=== PATIENT | male | born 1960 ===

== ENCOUNTER 2024-10-29 14:01 | Day surgery (SDC) | payer OTHER ==
[2024-10-29] VITALS (26 sets, daily range): BP systolic 114–154; BP diastolic 68–96
[~2024-10-29] VITALS: Ht 171 cm; Wt 85.4 kg
[~2024-10-29 14:01] MED LIST: ALLERCLEAR PO; Aspir 8181 MG PO; GLIP5 PO; JARDIANCE25 MG PO; METF500 PO; METHIMAZOLE5 M1 PO; MONT10T PO; Prinivil10 MG PO; ROSUVASTATIN CA10 MG PO; TRULICITY0.75 MG/01 SC
--- NOTE | 2024-10-29 14:51 | NUR ---
Ambulatory in Day Surgery. History, Chart, Medications and Allergies reviewed before start of procedure. Patient confirms NPO status and agrees with scheduled surgery. Pre-Op teaching done. Pt verbalizes understanding. Patient States Post-Procedure ride home has been arranged. Pt at bedside.
--- NOTE | 2024-10-29 15:56 | NUR ---
10/29/24 Cj6 Tahira Quevedo ENDO 1 @ 1505-CONFIRMED AND REVIEWED H&P, MEDCICATIONS, ALLERGIES, MEDICAL HISTORY, RESPIRATORY HISTORY, VITAL SIGNS, 3-LEAD EKG, CONSENTS, AND PHYSICIAN ORDERS. PATIENT CONFIRMS NPO STATUS AND AGREES WITH SCHEDULED PROCEDURE. MONITOR INTACT WITH CONTINUOUS PULSE OXIMETRY, CAPNOGRAPHY, 3-LEAD EKG, INTERMITTENT BP. SUPPLEMENTAL O2 TO BE TITRATED THROUGHOUT PROCEDURE TO MAINTAIN O2 SATURATION ABOVE 90%. PATIENT DETERMINED TO BE ASA APPROPRIATE FOR PROPOFOL SEDATION PRIOR TO START OF PROCEDURE BY . MALLAMPATI CLASS 3 AIRWAY: VISUALIZATION OF ONLY THE BASE OF THE UVULA.
--- NOTE | 2024-10-29 16:13 | NUR ---
Patient up to Ambulate independently. Gait steady. Discharge instructions reviewed with patient and his spouse. Patient verbalizes understanding. Copy given to patient to take home. Patient States Post-Procedure ride home has been arranged. Discharged via wheelchair to private car for ride home. Pt belongings returned to pt.
== END 2024-10-29 16:10 | disposition home or self-care (01) ==
LOC: ORD 14:01 → ORSCMMR 14:01 → ORD 15:30
PROVIDERS: Family Medicine
PROC: 0DJD8ZZ Inspection of Lower Intestinal Tract, Via Natural or Artificial Opening Endoscopic (ICD-10-PCS; principal; 2024-10-29 15:30)
DX: Z12.11 Encounter for screening for malignant neoplasm of colon (principal); E11.9 Type 2 diabetes mellitus without complications; K64.0 First degree hemorrhoids; G47.33 Obstructive sleep apnea (adult) (pediatric); E78.2 Mixed hyperlipidemia; E05.90 Thyrotoxicosis, unspecified without thyrotoxic crisis or storm; G47.30 Sleep apnea, unspecified; I10 Essential (primary) hypertension; Z79.84 Long term (current) use of oral hypoglycemic drugs; Z79.85 Long-term (current) use of injectable non-insulin antidiabetic drugs; Z79.82 Long term (current) use of aspirin; Z79.899 Other long term (current) drug therapy
CPT/HCPCS: 82947; J2704; J7120